=== PATIENT | male | born 1955 | race Caucasian/White ===

== ENCOUNTER 2016-04-11 22:13 | Observation (INO) | payer MEDICARE, OTHER ==
[2016-04-11] MEDS ORDERED: IOPAMIDOL 300 (61%) 150 ML VIAL IV ONE (22:14)
[2016-04-12] MEDS ORDERED: KETOROLAC TROMETHAMINE 30 MG/ML 1 ML VIAL ONE (00:58)
[2016-04-12] MEDS ORDERED: HYDROMORPHONE HCL 1 MG/ML SYRINGE ONE (00:58)
[2016-04-12] MEDS ORDERED: ONDANSETRON 4 MG/2ML 2 ML VIAL ONE (00:58)
[2016-04-12 01:02] LABS: BASO # 0.1 K/mm3 (0.0-0.2); BASO % 0.4 % (0.2-1.0); EOS # 0.3 (0.0-0.5); EOS % 1.2 % (0.9-2.9); HEMATOCRIT 43.2 % (32.0-52.0); HEMOGLOBIN 14.8 gm/l (14.0-18.0); IMM NEUT # 0.1 K/mm3 (0-0.2); IMM NEUT% 0.6 % (0-1); LYMPH # 1.6 (1.0-4.8); MEAN CELL VOLUME 83.7 fl (80.0-94.0); MEAN CORPUSCULAR HEMOGLOBIN 28.7 pg (27.0-31.0); MEAN CORPUSCULAR HGB CONC 34.3 g/dl (33.0-37.0); MEAN PLATELET VOLUME 8.3 fl (7.4-10.4); MONO # 2.5 (0.0-0.8); NEUT % 77.8 % (43-75); PLATELET COUNT 346 K/mm3 (130-400); RED CELL DISTRIBUTION WIDTH 13.1 % (11.5-14.5)
[2016-04-12 01:22] LABS: ALB/GLOB RATIO 1.1 (>1.0); ALBUMIN 3.8 gm/dL (3.5-5.7)
[2016-04-12 01:28] LABS: BAND 3 % (0-10); BASOPHIL 0 % (0-1); EOSINOPHIL 4 % (1-3); LYMPHOCYTE 11 % (15-45); MONOCYTE 11 % (4-12); NEUTROPHILS 71 % (43-75); PLATELET ESTIMATE NORMAL (NORMAL); TOTAL CELLS COUNTED 100; TOXIC GRANULATION 2+
[2016-04-12] MEDS ORDERED: BISACODYL 5 MG TABLET.EC PO PRN (03:39)
[2016-04-12] MEDS ORDERED: SODIUM CHLORIDE 0.9% 100 ML IV PRN (03:39)
[2016-04-12] MEDS ORDERED: BISACODYL 10 MG SUP PR PRN (03:39)
[2016-04-12] MEDS ORDERED: MENTHOL/CETYLPYRD 1 EACH LOZENGE PO PRN (03:39)
[2016-04-12] MEDS ORDERED: BLISTEX LIPSTICK 1 EACH TP PRN (03:39)
[2016-04-12] MEDS ORDERED: MAGNESIUM HYDROXIDE 30 ML UDCUP PO PRN (03:39)
[2016-04-12 03:42] VITALS: BMI 29.4
[2016-04-12] MEDS ORDERED: SODIUM CHLORIDE 0.9% 1,000 ML IV SCH (03:45)
[2016-04-12] MEDS ORDERED: ALBUTEROL SULFATE 200 PUFFS/INH INHALER IH PRN (03:47)
[2016-04-12] MEDS ORDERED: ONDANSETRON 4 MG/2ML 2 ML VIAL IV PRN (03:50)
[2016-04-12] MEDS ORDERED: PUMP TUBING ONE (04:10)
[2016-04-12] MEDS: PANTOPRAZOLE SODIUM 40 MG VIAL IV SCH (04:22)
[2016-04-12 05:24] LABS: SPECIFIC GRAVITY 1.015 (1.001-1.030); URINE APPEARANCE CLEAR; URINE BILIRUBIN NEGATIVE (NEGATIVE); URINE BLOOD NEGATIVE (NEGATIVE); URINE COLOR YELLOW; URINE GLUCOSE (UA) NEGATIVE (NEGATIVE); URINE LEUKOCYTE ESTERASE NEGATIVE (NEGATIVE); URINE NITRITE NEGATIVE (NEGATIVE); URINE PROTEIN TRACE (NEGATIVE); URINE UROBILINOGEN NORMAL (0-1 mg/dl)
[2016-04-12] MEDS: D5 1/2NS with 20 mEq KCL 1,000 ML IV SCH ×3 (05:37→23:53)
[2016-04-12] MEDS: HYDROMORPHONE HCL 0.5 MG/0.5 ML SYRINGE IV PRN ×5 (06:26→23:52)
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
[2016-04-12 07:16] LABS: CHOLESTEROL RISK RATIO 2.6 (4.0-6.7)
--- NOTE | 2016-04-12 08:03 | CT ---
Exam Type: ABD/PELVIS W/ CON Date and Time: 04/12/2016 12:32 AM Clinical information: Abdomen pain with nausea for 2 weeks. Comparison: None Procedure: Imaging device: [employer] Aquilion [address] scanner 1 mm axial images were obtained through the abdomen and pelvis. Stacked reconstructed 3, 4 and 5 mm images were photographed in the axial coronal and sagittal planes. No oral contrast was utilized for this examination. 125 ml of Isovue-300 was injected intravenously. Exam: with intravenous contrast. FINDINGS: Lung bases: There is a 4 mm noncalcified pulmonary nodule identified within the left pulmonary base on lung window image #31. Liver: The liver appears to be of diffusely decreased attenuation when compared to the spleen. No focal mass is visualized. Spleen: The spleen is homogeneous and does not appear to be enlarged. Gallbladder: Normal without enlargement or evidence of adjacent inflammatory changes. Pancreas: There is evidence of infiltration of the mesentery within the central epigastric region at the level of the pancreatic head and the third and fourth portions of the duodenum. Adrenal glands: Normal without enlargement or evidence of adjacent inflammatory changes. Abdominal aorta: Mild atherosclerotic vascular calcification is seen. No focal aneurysm is visualized. Kidneys: The kidneys appear to be symmetric in size with no perinephric inflammatory changes are identified. No current findings of hydronephrosis are seen. Bowel structures: The visualized bowel is of normal caliber without evidence of dilatation or obstruction. No free fluid or mesenteric inflammatory changes are identified. Appendix: The appendix is well-visualized and appears to be of normal caliber. No periappendiceal inflammatory changes or CT findings of appendicitis are currently observed. Bladder: The bladder is of normal contour. No wall thickening or significant distention is observed. Hernia: There is a fat filled right inguinal hernia noted. A small umbilical hernia is also identified. Adenopathy: No significant enlarged adenopathy is visualized. Osseous structures: No discrete osseous abnormalities are identified. Pelvic structures: There is note made of an enlarged prostate gland. IMPRESSION: 1. Enlargement and focal inflammatory stranding within the mesentery adjacent to the pancreatic head and distal duodenum with considerations including focal pancreatitis versus duodenitis. The pancreatic enhancement is otherwise appropriate with no focal fluid collection visualized. 2. Findings most commonly associated with diffuse fatty infiltration of the liver. 3. A 4 mm pulmonary nodule within the left lower lobe. Follow-up is recommended as per Fleischner criteria. 4. A normal appearance of the appendix without CT evidence of appendicitis. 5. Umbilical and right inguinal hernias. 6. An enlarged prostate gland. The findings were called to the emergency room at 0203 hours, 04/12/2016, by [facility].
[2016-04-12] MEDS: DOCUSATE SODIUM 100 MG CAPSULE PO SCH ×2 (08:26→22:25)
[2016-04-12] MEDS ORDERED: PNEUMOCOCCAL 23-VAL P-SAC VAC 0.5 ML VIAL SUB-Q V ONE (09:00)
[2016-04-12] MEDS: FLUTICASONE PROP 220 MCG 120 PUFF/INH INHALER IH SCH ×2 (14:43→22:25)
[2016-04-13] MEDS: HYDROMORPHONE HCL 0.5 MG/0.5 ML SYRINGE IV PRN ×2 (04:27→07:29)
[2016-04-13] MEDS ORDERED: LACTATED RINGERS 1,000 ML IV SCH (06:30)
[2016-04-13 07:10] LABS: ABSOLUTE NEUTROPHIL COUNT 12.9 K/mm3 (1.8-7.7); BASO # 0.1 K/mm3 (0.0-0.2); BASO % 0.3 % (0.2-1.0); EOS # 0.3 (0.0-0.5); EOS % 1.7 % (0.9-2.9); HEMATOCRIT 37.4 % (32.0-52.0); HEMOGLOBIN 12.7 gm/l (14.0-18.0); IMM NEUT # 0.1 K/mm3 (0-0.2); IMM NEUT% 0.5 % (0-1); LYMPH # 2.1 (1.0-4.8); LYMPH % 12.1 % (15-45); MEAN CELL VOLUME 85.2 fl (80.0-94.0); MEAN CORPUSCULAR HEMOGLOBIN 28.9 pg (27.0-31.0); MEAN PLATELET VOLUME 8.6 fl (7.4-10.4); MONO # 1.7 (0.0-0.8); NEUT % 75.4 % (43-75); PLATELET COUNT 277 K/mm3 (130-400); RED CELL DISTRIBUTION WIDTH 13.3 % (11.5-14.5)
[2016-04-13 07:46] LABS: ALBUMIN 3.2 gm/dL (3.5-5.7); CALCIUM 8.4 mg/dL (8.6-10.3)
[2016-04-13] MEDS: FLUTICASONE PROP 220 MCG 120 PUFF/INH INHALER IH SCH (08:47)
[2016-04-13] MEDS: DOCUSATE SODIUM 100 MG CAPSULE PO SCH (08:47)
[2016-04-13] MEDS ORDERED: LACTATED RINGERS 1,000 ML ONE (08:48)
[2016-04-13] MEDS ORDERED: PROPOFOL 20 ML IV ONE (09:23)
[2016-04-13] MEDS ORDERED: LIDOCAINE 2% (PRES FREE) 5 ML VIAL ONE (09:24)
[2016-04-13] MEDS: PANTOPRAZOLE SODIUM 40 MG VIAL IV SCH (10:11)
[2016-04-13] MEDS ORDERED: SUCRALFATE 1 G TABLET PO SCH (11:00)
--- NOTE | 2016-04-13 15:21 | PDOC43 ---
- Subjective Chief Complaint: abdominal pain, poss pancreatitis. Pt underwent EGD today, had some mild duodenitis, mild ulcer suggested in duodenum. Patient reports doing ok, a little sleepy after the procedure. Pain doing ok, tolerating lunch ok. Would be interested in going home. - Objective Vital Signs Temperature 98.0 F 04/13/16 11:15 Pulse Rate 84 04/13/16 11:15 Respiratory Rate 20 04/13/16 11:15 Blood Pressure 120/68 04/13/16 11:15 O2 Saturation by Pulse Oximetry 96 04/13/16 11:15 Oxygen Delivery Method Room Air Oxygen Flow Rate 0 Vital Signs Last 12 Hours Temp Pulse Resp BP Pulse Ox 04/13/16 11:15 98.0 F 84 20 120/68 96 04/13/16 10:15 98.0 F 80 20 110/70 97 04/13/16 10:00 98.2 F 80 20 114/68 95 04/13/16 08:00 98.0 F 86 20 112/70 97 04/13/16 04:19 20 04/13/16 04:00 98 F 84 20 116/68 94 Intake and Output 04/11/16 04/12/16 04/13/16 23:59 23:59 23:59 Intake Total 2373 1884 Output Total 600 1200 Balance 1773 684 General: Alert, Cooperative, No Acute Distress HEENT: Atraumatic Lungs: Clear to Auscultation Bilaterally, Normal Air Movement Cardiovascular: Regular Rate and Rhythm Abdomen: Soft, Tenderness (minimal, not focal.), Normal Bowel Sounds, Non- Distended, No Rebounding Extremities: No Edema Skin: Normal Color Neurological: Normal Speech Psych/Mental Status: Normal Affect Laboratory 04/13/16 06:10 04/13/16 06:10 04/13/16 04/13/16 07:09 06:10 RBC 4.39 L POC Capillary Glucose 183 H Calcium 8.4 L Albumin 3.2 L Current Medications: Current meds reviewed in EMR. Active Medications Generic Name Dose Route Start Last Admin Trade Name Freq PRN Reason Stop Dose Admin Albuterol Sulfate 1 puffs 04/12/16 03:47 Ventolin Hfa Mdi IH Q6H PRN Wheezing or Dyspnea Benzocaine/Menthol 1 each 04/12/16 03:39 Cepacol PO PRN PRN Sore Throat Bisacodyl 10 mg 04/12/16 03:39 Dulcolax HI DAILY PRN Constipation Bisacodyl 5 mg 04/12/16 03:39 Dulcolax PO DAILY PRN Constipation Docusate Sodium 100 mg 04/12/16 09:00 04/13/16 08:47 Colace PO Not Given BID [facility] Fluticasone Propionate 1 puff 04/12/16 09:00 04/13/16 08:47 Flovent Hfa 220 Mcg IH Not Given BID [facility] Hydromorphone HCl 0.5 mg 04/12/16 03:50 04/13/16 07:29 Dilaudid IV 0.5 mg Q2H PRN Administration Pain Sodium Chloride 100 mls @ 25 mls/hr 04/12/16 03:39 Sodium Chloride 0.9% IV PRN PRN Flush Magnesium Hydroxide 30 ml 04/12/16 03:39 Milk Of Magnesia PO DAILY PRN Constipation Ondansetron HCl 4 mg 04/12/16 03:50 04/12/16 14:19 Zofran IV 4 mg Q4H PRN Administration Nausea/Vomiting Pantoprazole Sodium 40 mg 04/12/16 05:00 04/13/16 10:11 Protonix IV 40 mg DAILY MIRANDA Administration Petrolatum/Paraffin/Mineral Oil 1 each 04/12/16 03:39 Blistex TP PRN PRN Dry and/or chapped lips Sodium Chloride 10 - 50 ml 04/12/16 03:39 04/12/16 04:22 Normal Saline 10ml Flush IV 20 ml PRN PRN Administration IV Flush Sodium Chloride 10 ml 04/12/16 09:00 04/13/16 08:47 Normal Saline 10ml Flush IV Not Given Q8HR [facility] Sucralfate 1 g 04/13/16 11:00 04/13/16 12:56 Carafate PO 1 g ACBEDTIME MIRANDA Administration - Problems: Assessment/Plan (1) Abdominal pain Qualifiers: Abdominal location: left upper quadrant Qualifier Code: (R10.12) Left upper quadrant pain Status: AcuteAssessment/Plan: Mostly resolved. CT with inflammation/stranding noted near head of pancreas. Amylase, Lipase remain normal. LFTs not remarkable. Unclear if passed stone Endoscopy suggests mild duodenal ulcer, mild gastritis. Pt reviews with he that he is HIV+, but with normal CD4 count, not on meds Discussed with both Dr Garza and radiologist; HIV diagnosis would not substantially change their results/opinion. (2) Asthma Qualifiers: Asthma severity: unspecified severity Asthma complication type: uncomplicated Qualifier Code: (J45.909) Unspecified asthma, uncomplicated Status: ChronicAssessment/Plan: Continue inhalers. (3) HTN (hypertension) Qualifiers: Hypertension type: essential hypertension Qualifier Code: (I10) Essential (primary) hypertension Status: ChronicAssessment/Plan: Stable. (4) Duodenal ulcer disease Status: AcuteAssessment/Plan: Anticipate continue on PPI, sucralfate. Follow up with Dr Garza on biopsy, H pylori. VTE Prophylaxis: mechanical Disposition: anticipate return to home today.
[2016-04-13 15:41] VITALS: BP 118/70
[2016-04-13 16:18] LABS: HELICOBACTER PYLORII DETECTION NEGATIVE (NEGATIVE)
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
--- NOTE | 2016-04-17 09:59 | SURGPATH ---
[facility] [address] [place] [id number] Patient Name: ALIVIA OROZCO MR#: [id number] : 1955 Gender: M Specimen #: [id number] Collected: 04/13/2016 Received: 04/14/2016 Reported: 04/17/2016 Submitting Phys: ROBIN BARLOW Copy To Phys: [facility] CARLYN MILNER JAMES H III AKPUNONU, PETER D Clinical History / Pre-Operative Diagnosis: ABDOMINAL PAIN; ABNORMAL ABDOMINAL CAT SCAN; RULE OUT GIARDIA, CELIAC SPRUE AND GASTRITIS Specimen Source / Surgical Procedure Performed: #1-DUODENAL BIOPSY; #2-ANTRAL BIOPSY Interpretation: Comment: 1. DUODENUM, BIOPSY: - NO PATHOLOGIC ABNORMALITIES 2. GASTRIC ANTRUM, BIOPSY: - NO PATHOLOGIC ABNORMALITIES Electronically Signed Out Parrish Perez M.D. Gross Description: #1 The specimen is received in a formalin filled container labeled with the patient's name and "duodenal biopsy". A single sloan biopsy is 0.5 cm. Totally embedded in cassette #1. #2 The specimen is received in a formalin filled container labeled with the patient's name and "antral biopsy". A single sloan biopsy is 0.5 cm. Totally embedded in cassette #2. Frederick Braxton Microscopic Description: 1. The sections show fragments of small bowel mucosa exhibiting a normal architectural pattern without evidence of villous blunting. There are no inflammatory or neoplastic features and there are no microorganisms identified. 2. The sections show fragments of gastric mucosa exhibiting a normal architectural pattern. There are no inflammatory or neoplastic features and there are no Helicobacter-like organisms identified. 1: [id number] 2: [id number] R10.9
== END 2016-04-13 15:50 | disposition home or self-care (01) ==
LOC: ED 22:13 → MS 04-12 02:37 → INTOOBSV 04-12 02:37
PROVIDERS: ADMIT Family Medicine; ATTEND Family Medicine
PROC: 3E0234Z Introduction of Serum, Toxoid and Vaccine into Muscle, Percutaneous Approach (ICD-10-PCS; principal; 2016-04-13)
PROC: 0DJ08ZZ Inspection of Upper Intestinal Tract, Via Natural or Artificial Opening Endoscopic (ICD-10-PCS; principal; 2016-04-13)
PROC: 0DB98ZX Excision of Duodenum, Via Natural or Artificial Opening Endoscopic, Diagnostic (ICD-10-PCS; principal; 2016-04-13)
DX: K85.90 Acute pancreatitis without necrosis or infection, unspecified (principal); E78.5 Hyperlipidemia, unspecified; J45.909 Unspecified asthma, uncomplicated; H53.2 Diplopia; R91.1 Solitary pulmonary nodule; K29.70 Gastritis, unspecified, without bleeding; K26.9 Duodenal ulcer, unspecified as acute or chronic, without hemorrhage or perforation; K29.80 Duodenitis without bleeding; I10 Essential (primary) hypertension; Z23 Encounter for immunization; N40.0 Benign prostatic hyperplasia without lower urinary tract symptoms; K42.9 Umbilical hernia without obstruction or gangrene; K40.90 Unilateral inguinal hernia, without obstruction or gangrene, not specified as recurrent
CPT/HCPCS: 90732; 83690 ×2; 82150; 85025 ×2; 80053 ×2; 87081; 80061; 81003; 84484; 36415; 74177; 96375 ×2; 99284; 96374; 99285; 43235; 43242; 90471; A9270; J1170 ×8; C9113 ×3; J1885; J2405 ×2; J7120 ×2; J7030